=== PATIENT | male | born 1960 | race African-American/Black ===

== ENCOUNTER 2023-09-25 18:52 | Emergency (ER) | payer SELFPAY ==
[~2023-09-25] VITALS: Ht 175.3 cm; Wt 77.5 kg
[2023-09-25 18:55] VITALS: TEMP 98.8; O2SAT 99
[2023-09-25] MEDS ORDERED: ALBUTEROL (18:55)
[2023-09-25 20:28] LABS: BASOPHILS % 0.9 % (0.0-2.0); HEMATOCRIT. 37.6 % (42.0-52.0); HEMOGLOBIN. 12.3 g/dL (14.0-18.0); LYMPHOCYTES % 21.5 % (20.0-50.0); MEAN CORPUSCULAR HEMOGLOBIN 29.9 pg (28.0-32.0); MEAN CORPUSCULAR HGB CONC 32.9 g/dL (31.0-37.0); MEAN CORPUSCULAR VOLUME 90.9 fL (80.0-94.0); MEAN PLATELET VOLUME 9.8 fl (7.4-10.4); MONOCYTES % 7.5 % (2.0-8.0); NEUTROPHILS % 67.1 % (40.0-76.0); PLATELET 163 x1000/uL (130-400); RED BLOOD CELL COUNT 4.13 mill/uL (4.7-6.1); RED CELL DISTRIBUTION WIDTH 16.6 % (11.6-14.6); WHITE BLOOD COUNT 4.5 x1000/uL (4.5-11.0)
[2023-09-25 20:33] LABS: CHLORIDE 107 mEq/L (98-107); POTASSIUM 4.1 mEq/L (3.5-5.1); SODIUM 139 mEq/L (136-145)
[2023-09-25 20:34] LABS: CARBON DIOXIDE 26 mEq/L (21-32)
[2023-09-25 20:39] LABS: CREATININE 1.5 mg/dL (0.6-1.3); GLUCOSE 136 mg/dL (70-105); UREA NITROGEN BLOOD 20 mg/dL (9-23)
[2023-09-25 20:44] LABS: TROPONIN I HIGH SENSITIVITY < 4 ng/L (3.0-53)
[2023-09-25] MEDS: SODIUM CHLORIDE 0.9% 1,000 ML IV ONE (21:29)
[2023-09-25 22:44] VITALS: BP 100/61; PULSE 63; RESP 14
[2023-09-25] MEDS ORDERED: IOHEXOL-350 100 ML BOTTLE ONE (23:00)
== END 2023-09-25 22:57 | disposition home or self-care (01) ==
LOC: ER 18:52
DX: R55 Syncope and collapse (principal); J45.909 Unspecified asthma, uncomplicated
CPT/HCPCS: 99285; 96360; 71275; 71045; 80048; 83880; 85025; 85379; 84484; 36415; 93005; Q9967; J7030